=== PATIENT | female | born 1970 | race Caucasian/White ===

== ENCOUNTER 2018-11-16 13:21 | Emergency (ER) | payer BC ==
[~2018-11-16] VITALS: Ht 172.7 cm; Wt 71.0 kg
--- NOTE | 2018-11-16 13:40 | NUR ---
PT STATES THAT SHE WAS TAKING OTC MAGNESIUM, BUT IT BEGAN GIVING HER DIARRHEA ROUGHLY FIVE DAYS AGO. SHE STOPPED THE MAGNESIUM AT THAT TIME.
[2018-11-16 14:17] LABS: BASOPHILS % (AUTO) 0.5 % (0-1); EOSINOPHILS # (AUTO) 0.1 X10'3 (0-0.9); EOSINOPHILS % (AUTO) 1.5 % (0-6); HEMATOCRIT 38.7 % (35.0-45.0); HEMOGLOBIN 13.2 g/dl (12.0-16.0); LYMPHOCYTES # (AUTO) 1.5 X10'3 (1.1-4.8); LYMPHOCYTES % (AUTO) 30.1 % (21-51); MEAN CORPUSCULAR HEMOGLOBIN 31.5 PG (27.0-31.0); MEAN CORPUSCULAR HGB CONC 34.2 g/dL (33.0-36.5); MEAN PLATELET VOLUME 9.3 FL (7.4-10.4); MONOCYTES # (AUTO) 0.3 X10'3 (0-0.9); MONOCYTES % (AUTO) 6.1 % (2-12); NEUTROPHILS % (AUTO) 61.8 % (42-75); PLATELET COUNT 203 X10'3 (140-440); RED BLOOD COUNT 4.21 X10'6 (4.20-5.60); RED CELL DISTRIBUTION WIDTH 12.8 % (11.5-14.5); WHITE BLOOD COUNT 4.9 X10'3 (4.5-11.0)
[2018-11-16 14:25] VITALS: BP 126/81
[2018-11-16 14:26] LABS: PARTIAL THROMBOPLASTIN TIME 26 SECONDS (22-32)
[2018-11-16 14:28] LABS: ALANINE AMINOTRANSFERASE 20 U/L (12-78); ALBUMIN 3.6 G/DL (3.4-5.0); ALBUMIN/GLOBULIN RATIO 1.4 (1.1-1.5); ALKALINE PHOSPHATASE 44 IU/L (46-116); ANION GAP 9 (8-16); ASPARTATE AMINO TRANSFERASE 9 U/L (10-37); BILIRUBIN,TOTAL 0.4 MG/DL (0.1-1.0); BLOOD UREA NITROGEN 10 MG/DL (7-18); BUN/CREATININE RATIO 9.4 (6.6-38.0); CALCIUM 8.9 MG/DL (8.5-10.1); CHLORIDE 113 MMOL/L (99-107); CREATININE 1.06 MG/DL (0.40-0.90); GLUCOSE 97 MG/DL (70-104); POTASSIUM 3.4 MMOL/L (3.5-5.1); SODIUM 144 MMOL/L (135-145); TOTAL CARBON DIOXIDE 21.8 MMOL/L (24-32); TOTAL PROTEIN 6.2 G/DL (6.4-8.2); eGFR 56 ML/MIN
[2018-11-16] MEDS ORDERED: LIDOcaine 40mg/ml topical solution IH ONE (14:35)
[2018-11-16 15:01] LABS: D-DIMER < 0.19 MG/L FEU (0-0.50)
--- NOTE | 2018-11-16 15:16 | NUR ---
[facility] CHARTING ONLY ALLOWS FOR 3 ML OF 4% LIDOCAINE, DR. COLE ORDERED AND I ADMINISTERED 4 ML OF NEB LIDOCAINE MD AWARE AND OKAY
[2018-11-16] MEDS ORDERED: ALBU8HFA PO (15:25)
[2018-11-16] MEDS ORDERED: SUCR1TAB34 PO (15:29)
== END 2018-11-16 15:35 | disposition home or self-care (01) ==
LOC: ER 13:22
DX: R06.02 Shortness of breath (principal); R06.4 Hyperventilation; Z98.890 Other specified postprocedural states; Z56.0 Unemployment, unspecified; Z79.899 Other long term (current) drug therapy
CPT/HCPCS: 36415; 71045; 80053; 84484; 85025; 85379; 85610; 85730; 93005; 94640; 94760; 99284; J2001; 99285